=== PATIENT | male | born 1950 | race African-American/Black ===

== ENCOUNTER → 2020-05-28 | Outpatient (CLI) | payer MEDICARE ==
[~2020-05-28] MED LIST: ACYC-114 PO; CEPH-368 PO; HYDR-3240 PO; HYDR-3652 PO; LISI-170 PO; METF-688 PO; METO-95 PO; METO25TA35 PO; RANI-460 PO
== END | disposition home or self-care (01) ==
LOC: CFH 10:44
PROVIDERS: ATTEND Internal Medicine Cardiovascular Disease
DX: I08.3 Combined rheumatic disorders of mitral, aortic and tricuspid valves (principal); I10 Essential (primary) hypertension; E78.5 Hyperlipidemia, unspecified
CPT/HCPCS: 93306